=== PATIENT | female | born 2000 | race African-American/Black ===

== ENCOUNTER 2023-06-11 19:20 | Inpatient (IN) | payer OTHER ==
[~2023-06-11] VITALS: Ht 162.6 cm; Wt 93.5 kg
[2023-06-11 20:21] LABS: CLARITY URINE CLEAR (CLEAR); COLOR URINE YELLOW (YELLOW); GLUCOSE URINE NEGATIVE (NEGATIVE); KETONES URINE NEGATIVE (NEGATIVE); LEUKOCYTE ESTERASE URINE NEGATIVE (NEGATIVE); NITRITE URINE NEGATIVE (NEGATIVE); OCCULT BLOOD URINE NEGATIVE (NEGATIVE); PROTEIN URINE NEGATIVE (NEGATIVE); SPECIFIC GRAVITY URINE 1.021 (1.005-1.030)
[2023-06-11 20:22] LABS: BASOPHILS % 0.5 % (0.0-2.0); EOSINOPHILS % 0.7 % (0.0-5.0); HEMATOCRIT. 35.7 % (36.0-48.0); HEMOGLOBIN. 11.4 g/dL (12.0-16.0); LYMPHOCYTES % 24.3 % (20.0-50.0); MEAN CORPUSCULAR HEMOGLOBIN 25.9 pg (28.0-32.0); MEAN CORPUSCULAR VOLUME 80.9 fL (81.0-99.0); MEAN PLATELET VOLUME 8.6 fl (7.4-10.4); MONOCYTES % 10.4 % (2.0-8.0); NEUTROPHILS % 64.1 % (40.0-76.0); PLATELET 311 x1000/uL (130-400); RED BLOOD CELL COUNT 4.41 mill/uL (4.2-5.4); RED CELL DISTRIBUTION WIDTH 16.1 % (11.6-14.6); WHITE BLOOD COUNT 7.4 x1000/uL (4.5-11.0)
[2023-06-11 20:36] LABS: ALANINE AMINOTRANSFERASE 17 IU/L (10-49); ALBUMIN 4.3 g/dL (3.2-4.8); ASPARTATE AMINOTRANSFERASE 20 IU/L (<34); BILIRUBIN TOTAL 1.1 mg/dL (0.1-1.0); CALCIUM 9.5 mg/dL (8.7-10.4); CARBON DIOXIDE 30 mEq/L (21-32); CHLORIDE 107 mEq/L (98-107); CREATININE 0.8 mg/dL (0.6-1.0); GLUCOSE 78 mg/dL (70-105); POTASSIUM 3.6 mEq/L (3.5-5.1); PROTEIN TOTAL 7.3 g/dL (6.0-8.3); SODIUM 142 mEq/L (136-145); UREA NITROGEN BLOOD 10 mg/dL (9-23)
[2023-06-11 20:53] LABS: HCG SCREEN NEGATIVE
[2023-06-11] MEDS ORDERED: IBUPROFEN 600MG TABLET PO ONE (21:00)
[2023-06-12] MEDS ORDERED: GUAIFENESIN 200MG/10ML SUGAR FREE UDC PO PRN (02:15)
[2023-06-12] MEDS ORDERED: IPRATROPIUM/ALBUTEROL 0.5-3(2.5)MG/3ML NEB HHN PRN (02:15)
[2023-06-12] MEDS ORDERED: CLONIDINE 0.1MG TABLET PO PRN (02:15)
[2023-06-12] MEDS ORDERED: DOCUSATE SODIUM 100MG CAPSULE PO PRN (02:15)
[2023-06-12] MEDS ORDERED: HYDROCODONE/ACETAMINOPHEN 5/325MG TABLET PO PRN (02:15)
[2023-06-12] MEDS ORDERED: ONDANSETRON HCL 4MG/2ML INJ IV PRN (02:15)
[2023-06-12] MEDS ORDERED: ACETAMINOPHEN 325MG TABLET PO PRN ×2 (02:15)
[2023-06-12] MEDS ORDERED: MAGNESIUM/ALUMINUM HYDROXIDE/SIMETHICONE 30ML UDC PO PRN (02:15)
[2023-06-12] MEDS ORDERED: NALOXONE HCL 0.4MG/ML VIAL IV PRN (02:30)
[2023-06-12 03:38] LABS: IRON 22 ug/dL (50-170); TOTAL IRON BINDING CAPACITY 291 ug/dl (250-425)
[2023-06-12 03:39] LABS: FERRITIN 32 ng/mL (10-291); FOLIC ACID (FOLATE) SERUM 16.23 ng/mL (>5.38); VITAMIN B12 SERUM 446 pg/mL (211-911)
[2023-06-12 08:00] VITALS: BP 111/66; PULSE 64; RESP 19; TEMP 98.2
[2023-06-12] MEDS ORDERED: PANTOPRAZOLE SODIUM 40 MG/VIAL IV SCH (09:00)
[2023-06-12] MEDS ORDERED: ENOXAPARIN 30MG/0.3ML SYR SUBCUT SCH (09:00)
[2023-06-12 12:00] VITALS: BP 121/69; PULSE 70; RESP 20; TEMP 98.2
[2023-06-12 12:03] VITALS: BP 98/67; PULSE 65; RESP 20; TEMP 98.2
[2023-06-12 13:04] VITALS: BP 121/69; PULSE 70; TEMP 98.2; O2SAT 100
[2023-06-13 07:09] LABS: FOLICLE STIMULATING HORMONE 6.8 mIU/mL (.); LUTEINIZING HORMONE 6.2 mIU/mL (.)
== END 2023-06-12 13:55 | disposition home or self-care (01) | DRG 761 ==
LOC: ER 19:20 → MICUSO 06-12 00:17 → EDBEDREQ 06-12 01:22 → EDBEDREQTM 06-12 01:22 → 6WST 06-12 06:52
PROVIDERS: ADMIT Hospitalist; ATTEND Hospitalist
DX: N83.201 Unspecified ovarian cyst, right side (principal); L30.9 Dermatitis, unspecified; D50.9 Iron deficiency anemia, unspecified; N83.202 Unspecified ovarian cyst, left side; N80.9 Endometriosis, unspecified
CPT/HCPCS: 36415; 76830; 76856; 80053; 81003; 82607; 82728; 82746; 83001; 83002; 83540; 83550; 84703; 85025; 99285; J1650